=== PATIENT | male | born 1975 | race Two or more races ===

== ENCOUNTER 2023-07-22 05:03 | Emergency (ER) | payer MEDICAID ==
[~2023-07-22] VITALS: Ht 167.6 cm; Wt 65.9 kg
[2023-07-22] MEDS ORDERED: INSLAN SQ (05:17)
[2023-07-22] MEDS ORDERED: METF-445 PO (05:17)
[2023-07-22 05:26] LABS: GLUCOMETER DEV NAME(LOC) ERT.5; GLUCOSE,POINT OF CARE 334 MG/DL (70-110)
[2023-07-22 05:32] VITALS: BP 122/80; PULSE 120; RESP 16; TEMP 98.2
[2023-07-22] MEDS ORDERED: IBUP-1492 PO (08:08)
[2023-07-22] MEDS ORDERED: KETOROLAC TROMETHAMINE 60 MG/2 ML VIAL IM ONE (08:15)
== END 2023-07-22 11:46 | disposition home or self-care (01) ==
LOC: EMS 05:03
DX: M48.56XA Collapsed vertebra, not elsewhere classified, lumbar region, initial encounter for fracture (principal); S20.212A Contusion of left front wall of thorax, initial encounter; E11.9 Type 2 diabetes mellitus without complications; F17.210 Nicotine dependence, cigarettes, uncomplicated; F15.90 Other stimulant use, unspecified, uncomplicated; Z98.890 Other specified postprocedural states; W19.XXXA Unspecified fall, initial encounter; Y93.89 Activity, other specified; Y92.89 Other specified places as the place of occurrence of the external cause; Y99.8 Other external cause status
CPT/HCPCS: 99285; 71250; 71046; 82962; 96372; J1885

== ENCOUNTER 2023-07-25 08:46 | Emergency (ER) | payer MEDICAID ==
[~2023-07-25] VITALS: Ht 167.6 cm; Wt 68.6 kg
[~2023-07-25 08:46] MED LIST: IBUP-1492 PO; INSLAN SQ; METF-445 PO
[2023-07-25 08:58] VITALS: TEMP 98.2
[2023-07-25 09:16] LABS: GLUCOMETER DEV NAME(LOC) ERT.5; GLUCOSE,POINT OF CARE 482 MG/DL (70-110)
[2023-07-25] MEDS ORDERED: HYDROCODONE/ACETAMINOPHEN 5-325 MG TABLET PO ONE (10:30)
[2023-07-25] MEDS ORDERED: SODIUM CHLORIDE 0.9% 1,000 ML IV ONE ×2 (10:30→11:15)
[2023-07-25 10:53] LABS: ANION GAP 4 mmol/L (8-16); CALCIUM, TOTAL 9.6 mg/dL (8.8-10.5); CARBON DIOXIDE 31 mmol/L (22-29); CHLORIDE 92 mmol/L (98-107); CREATININE 0.94 mg/dL (0.60-1.30); GLOMERULAR FILTR. RATE CALC > 60 mL/min (>60); POTASSIUM 4.9 mmol/L (3.5-5.1); SODIUM SERUM 127 mmol/L (136-145); UREA NITROGEN, BLOOD 13 mg/dL (7-18)
[2023-07-25 11:00] LABS: GLUCOSE,RANDOM 449 mg/dL (70-110)
[2023-07-25] MEDS ORDERED: INSULIN REGULAR, HUMAN 100 UNITS/ML IVP ONE (11:15)
[2023-07-25 12:31] VITALS: BP 125/72; PULSE 88; RESP 16
[2023-07-25] MEDS ORDERED: INSLAN SQ (12:34)
[2023-07-25] MEDS ORDERED: HYDR-4723 PO (12:34)
[2023-07-25 12:46] LABS: GLUCOMETER DEV NAME(LOC) ER.6; GLUCOSE,POINT OF CARE 223 MG/DL (70-110)
== END 2023-07-25 12:56 | disposition home or self-care (01) ==
LOC: EMS 08:46
DX: S20.212A Contusion of left front wall of thorax, initial encounter (principal); E11.65 Type 2 diabetes mellitus with hyperglycemia; E11.9 Type 2 diabetes mellitus without complications; F17.210 Nicotine dependence, cigarettes, uncomplicated; F15.90 Other stimulant use, unspecified, uncomplicated; Z98.890 Other specified postprocedural states; X58.XXXA Exposure to other specified factors, initial encounter; Y93.89 Activity, other specified; Y92.89 Other specified places as the place of occurrence of the external cause; Y99.8 Other external cause status
CPT/HCPCS: 99283; 96374; 96361; 80048; 82962; 36415; 82948; J1815; J7030

== ENCOUNTER 2024-10-07 17:19 | Emergency (ER) | payer MEDICAID ==
[~2024-10-07] VITALS: Ht 167.6 cm; Wt 79.5 kg
[~2024-10-07 17:19] MED LIST changes: +HYDR-4062 PO; -IBUP-1492 PO
[2024-10-07 17:40] LABS: COVID AG,FIA SOURCE NASAL SWAB
[2024-10-07 18:02] LABS: SARS-COV2 (COVID) ANTIGEN,FIA Negative (Negative)
[2024-10-07 18:03] LABS: INFLUENZA TYPE A NEGATIVE FOR TYPE A (NEGATIVE); INFLUENZA TYPE B NEGATIVE FOR TYPE B (NEGATIVE)
[2024-10-07 18:42] LABS: BASOPHILS % (AUTO) 0.6 % (0.0-2.0); EOSINOPHILS % (AUTO) 1.1 % (1.0-6.0); HEMATOCRIT 40.2 % (41-53); HEMOGLOBIN 13.5 g/dL (13.5-17.5); LYMPHOCYTES # (AUTO) 2.1 K/uL (1.0-4.8); LYMPHOCYTES % (AUTO) 15.5 % (22.0-44.0); MEAN CORPUSCULAR HEMOGLOBIN 30.6 pg (26.0-34.0); MEAN CORPUSCULAR HGB CONC 33.7 G/dL (31.0-37.0); MEAN CORPUSCULAR VOLUME 91 fL (80-100); MONOCYTES # (AUTO) 1.6 K/uL (0.1-1.0); MONOCYTES % (AUTO) 11.8 % (2.0-9.0); NEUTROPHILS # (AUTO) 9.7 K/uL (1.8-7.7); PLATELET COUNT (AUTO) 241 K/uL (150-450); RED BLOOD CELL COUNT(AUTO) 4.42 MIL/uL (4.50-5.90); RED CELL DISTRIBUTION WIDTH 13.6 % (11.5-14.5); WHITE BLOOD COUNT (AUTO) 13.7 K/uL (4.5-11.0)
[2024-10-07 18:48] LABS: ALCOHOL, URINE DRUG SCREEN NEGATIVE (NEGATIVE); AMPHET/METH SCREEN,URINE POSITIVE (NEGATIVE); BARBITURATE SCREEN, URINE NEGATIVE (NEGATIVE); BENZODIAZEPINES SCREEN,URINE NEGATIVE (NEGATIVE); CANNABINOID SCREEN,URINE NEGATIVE (NEGATIVE); COCAINE SCREEN,URINE NEGATIVE (NEGATIVE); METHADONE SCREEN, URINE NEGATIVE (NEGATIVE); OPIATE SCREEN,URINE NEGATIVE (NEGATIVE); PHENCYCLIDINE SCREEN,URINE NEGATIVE (NEGATIVE)
[2024-10-07 18:50] LABS: ALBUMIN 2.8 g/dL (3.4-5.0); BILIRUBIN,DIRECT 0.1 mg/dL (0.00-0.20); BILIRUBIN,TOTAL 0.3 mg/dL (0.1-1.0); TOTAL PROTEIN, SERUM 6.7 g/dL (6.4-8.2)
[2024-10-07 18:55] LABS: CALCIUM, TOTAL 8.2 mg/dL (8.8-10.5); CARBON DIOXIDE 30 mmol/L (22-29); CREATININE 1.14 mg/dL (0.60-1.30); GLOMERULAR FILTR. RATE CALC > 60 mL/min (>60); GLUCOSE,RANDOM 225 mg/dL (70-110); TROPONIN I-HIGH SENSITIVITY 5 ng/L (<76); UREA NITROGEN, BLOOD 15 mg/dL (7-18)
[2024-10-07 18:58] LABS: ANION GAP 4 mmol/L (8-16); CHLORIDE 98 mmol/L (98-107); POTASSIUM 3.8 mmol/L (3.5-5.1); SODIUM SERUM 132 mmol/L (136-145)
[2024-10-07 19:04] VITALS: TEMP 98.7
[2024-10-07 19:06] VITALS: BP 129/76; PULSE 99; RESP 22; O2SAT 97
== END 2024-10-07 19:25 | disposition home or self-care (01) ==
LOC: EMS 17:21
DX: F15.10 Other stimulant abuse, uncomplicated (principal); R53.81 Other malaise; R05.9 Cough, unspecified; F17.200 Nicotine dependence, unspecified, uncomplicated; E11.9 Type 2 diabetes mellitus without complications; Z79.84 Long term (current) use of oral hypoglycemic drugs; Z98.890 Other specified postprocedural states; Z20.822 Contact with and (suspected) exposure to COVID-19
CPT/HCPCS: 71045; 80048; 80076; 80307; 83880; 84484; 85025; 87804; 93005; 99285; 36415-L1; 36415-TC

== ENCOUNTER 2025-08-04 18:46 | Emergency (ER) | payer MEDICAID ==
[~2025-08-04] VITALS: Ht 167.6 cm; Wt 86.4 kg
[2025-08-04] MEDS ORDERED: METF-1211 PO (18:54)
[2025-08-04 19:00] LABS: COVID AG,FIA SOURCE NASAL SWAB
[2025-08-04 19:14] LABS: PLATELET COUNT (AUTO) 288 K/uL (150-450); RED BLOOD CELL COUNT(AUTO) 4.95 MIL/uL (4.50-5.90); RED CELL DISTRIBUTION WIDTH 14.6 % (11.5-14.5); WHITE BLOOD COUNT (AUTO) 8.5 K/uL (4.5-11.0)
[2025-08-04 19:21] LABS: SARS-COV2 (COVID) ANTIGEN,FIA Negative (Negative)
[2025-08-04 19:23] LABS: INFLUENZA TYPE A NEGATIVE FOR TYPE A (NEGATIVE); INFLUENZA TYPE B POSITIVE FOR TYPE B (NEGATIVE)
[2025-08-04 19:24] LABS: CALCIUM, TOTAL 8.5 mg/dL (8.8-10.5); CREATININE 1.26 mg/dL (0.60-1.30); GLOMERULAR FILTR. RATE CALC > 60 mL/min (>60); GLUCOSE,RANDOM 345 mg/dL (70-110); SODIUM SERUM 135 mmol/L (136-145); UREA NITROGEN, BLOOD 24 mg/dL (7-18)
[2025-08-04 19:26] LABS: ACETONE,BLOOD NEGATIVE (NEGATIVE)
[2025-08-04 19:29] LABS: ASPARTATE AMINOTRANSFERASE 16 U/L (15-37); TOTAL PROTEIN, SERUM 7.1 g/dL (6.4-8.2)
[2025-08-04 19:31] LABS: TROPONIN I-HIGH SENSITIVITY 8 ng/L (<76)
[2025-08-04] MEDS: SODIUM CHLORIDE 0.9% 1,000 ML IV ONE (19:39)
[2025-08-04 20:38] VITALS: BP 143/93; PULSE 99; RESP 18; TEMP 97.9; O2SAT 97
[2025-08-04] MEDS ORDERED: BENZ-227 PO (20:39)
[2025-08-04] MEDS ORDERED: OSEL75CA45 PO (20:39)
[2025-08-04] MEDS: OSELTAMIVIR PHOSPHATE 75 MG CAPSULE PO ONE (20:41)
[2025-08-04 20:44] LABS: APPEARANCE,URINE CLEAR (CLEAR); GLUCOSE, URINE (UA) >=1000 mg/dL (NEGATIVE); LEUKOCYTE ESTERASE ,URINE NEGATIVE (NEGATIVE); NITRATE,URINE NEGATIVE (NEGATIVE); OCCULT BLOOD,URINE NEGATIVE (NEGATIVE); SPECIFIC GRAVITIY, URINE 1.031 (1.003-1.030)
[2025-08-04 21:01] LABS: SQUAMOUS EPITHELIAL CELL,UR Rare /LPF (None Seen)
[2025-08-04 21:10] LABS: GLUCOMETER DEV NAME(LOC) ER.7; GLUCOSE,POINT OF CARE 259 MG/DL (70-110)
== END 2025-08-04 21:31 | disposition home or self-care (01) ==
LOC: EMS 18:50
DX: J10.1 Influenza due to other identified influenza virus with other respiratory manifestations (principal); E11.65 Type 2 diabetes mellitus with hyperglycemia; F17.210 Nicotine dependence, cigarettes, uncomplicated; F15.90 Other stimulant use, unspecified, uncomplicated; Z71.3 Dietary counseling and surveillance; Z98.890 Other specified postprocedural states; Z20.822 Contact with and (suspected) exposure to COVID-19
CPT/HCPCS: 99285; 96360; 71045; 87426; 80053; 81001; 82009; 82962; 84484; 85025; 87804; 36415; 93005; 82948; J7030